=== PATIENT | female | born 1980 | race Hispanic/Latino ===

== ENCOUNTER 2018-07-29 12:02 | Emergency (ER) | payer BC ==
[~2018-07-29] VITALS: Ht 151.1 cm; Wt 82.6 kg
[2018-07-29] MEDS ORDERED: CEFTRIAXONE SOD 1 GM/NS 50 ML 50 ML IV STA (12:07)
[2018-07-29] MEDS ORDERED: MORPHINE SULFATE INJ 4 MG/ML INJ 1ML IV STA (12:07)
[2018-07-29] MEDS ORDERED: SODIUM CHLORIDE 0.9% 1000ML 1,000 ML IV STA (12:07)
[2018-07-29] MEDS ORDERED: ONDANSETRON HCL INJ 2MG/ML 2ML 2 MG/ML VIAL IV STA (12:07)
--- NOTE | 2018-07-29 13:34 | NUR ---
TO CT VIA WC WITH TECH
[2018-07-29 14:08] LABS: STREPTOCOCCUS GRP A ANTIGEN NEGATIVE (NEGATIVE)
[2018-07-29 14:12] LABS: CLARITY,URINE CLOUDY (CLEAR); COLOR,URINE YELLOW (YELLOW); LEUKOCYTE ESTERASE ,URINE TRACE (NEGATIVE); NITRITE,URINE NEGATIVE (NEGATIVE)
[2018-07-29 14:13] LABS: BILIRUBIN,URINE 1+ (NEGATIVE); KETONES,URINE NEGATIVE (NEGATIVE); PROTEIN,URINE DIPSTICK 2+ (NEGATIVE); URINE UROBILINOGEN 0.2 mg/dL (0.2 - 1)
[2018-07-29 14:14] LABS: PREGNANCY TEST, URINE NEGATIVE (NEGATIVE)
[2018-07-29 14:24] LABS: BACTERIA,URINE MODERATE /HPF; RBC,URINE >50 /HPF (0-5)
[2018-07-29 14:25] LABS: AMORPHOUS SEDIMENT,URINE MODERATE (FEW); EPITHELIAL CELLS,URINE MODERATE /LPF
[2018-07-29] MEDS ORDERED: KETOROLAC TROMETHAMINE 30 MG/ML VIAL IV ONE (14:30)
[2018-07-29 14:48] LABS: INFLUENZAE A&B ANTIGEN (RAPID) NEGATIVE (NEGATIVE)
--- NOTE | 2018-07-29 14:48 | Diagnostic Imaging Report ---
EXAMINATION: CT of the abdomen and pelvis without contrast. TECHNIQUE: Spiral CT images of the abdomen and pelvis were performed from the lung bases to the lesser trochanters. No intravenous contrast was given per renal stone protocol. Coronal and sagittal reformatted images were obtained. COMPARISON: None. CLINICAL HISTORY:Right lower quadrant pain radiating to right back side DISCUSSION: ABSENCE OF INTRAVENOUS CONTRAST DECREASES SENSITIVITY FOR DETECTION OF FOCAL LESIONS AND VASCULAR PATHOLOGY. ABDOMEN/PELVIS: LOWER THORAX: Unremarkable. HEPATOBILIARY: Diffuse hepatic steatosis. Mild hepatomegaly, measuring 16 cm in the right midclavicular line. Normal hepatic contour. 1.0 cm rounded structure in hepatic segment III (series 3, image 45), which is hyperdense relative to the rest of the hepatic parenchyma. No other focal hepatic lesions. No intra or extrahepatic biliary ductal dilation. GALLBLADDER: No radio-opaque stones or sludge. No wall thickening. SPLEEN: No splenomegaly. PANCREAS: No focal masses or ductal dilatation. ADRENALS: No adrenal nodules. KIDNEYS/URETERS: 2 adjacent radiopaque stones are noted in the proximal right ureter measuring 2 and 3 mm (series 3, image 88 and coronal image 55), which result in mild right hydronephrosis, proximal hydroureter and minimal periureteral stranding. Punctate nonobstructing calculus in the right inferior pole (series 3, image 84). No other renal or ureteral calculi. No left hydronephrosis or obstruction. No renal contour abnormalities. PELVIC ORGANS/BLADDER: Bladder is unremarkable. Uterus is unremarkable. No adnexal masses. PERITONEUM/RETROPERITONEUM: No free air or fluid. LYMPH NODES: No intra-abdominal,retroperitoneal, pelvic or inguinal lymphadenopathy. VESSELS: Unremarkable for noncontrast exam. GI TRACT: No bowel dilation or evidence of obstruction. No pericolonic inflammatory changes. Appendix identified and normal in caliber. BONES AND SOFT TISSUES: No aggressive lytic lesions. Small fat-containing right inguinal hernia. IMPRESSION: 1. 2 and 3 mm obstructing calculi in the proximal right ureter, which result in mild right hydronephrosis, proximal hydroureter and minimal periureteral stranding. 2. Punctate nonobstructing calculus in the right inferior pole. 3. Mild hepatomegaly with diffuse steatosis. A 1.0 cm rounded structure in hepatic segment III, which is hyperdense relative to the rest of the hepatic parenchyma likely represents a focus of fatty sparing. This may be further assessed with contrast-enhanced MRI of the abdomen with liver mass protocol. Signed by: Dr. Lev Otoole M.D. on 07/29/2018 2:45 PM
[2018-07-29 15:03] LABS: BASOPHILS # (AUTO) 0.1 (0.0-0.1); BASOPHILS % 0.7 % (0.0-1.0); EOSINOPHILS # (AUTO) 0.7 (0.0-0.4); EOSINOPHILS % 7.5 % (0.0-6.0); HEMATOCRIT 44.6 % (34.2-44.1); LYMPHOCYTES # (AUTO) 1.8 (1.0-3.2); LYMPHOCYTES % 19.5 % (18.0-39.1); MEAN CORPUSCULAR HEMOGLOBIN 29.1 pg (28-32); MEAN CORPUSCULAR HGB CONC 33.6 g/dL (31-35); MEAN CORPUSCULAR VOLUME 86.4 fL (81-99); MONOCYTES # (AUTO) 0.7 (0.2-0.8); MONOCYTES % 7.2 % (4.4-11.3); NEUTROPHILS # (AUTO) 6.1 (2.1-6.9); NEUTROPHILS % 64.9 % (38.7-80.0); PLATELET COUNT 228 x10e3/uL (140-360); RED BLOOD COUNT 5.16 x10e6/uL (3.6-5.1); RED CELL DISTRIBUTION WIDTH 12.9 % (11.7-14.4)
[2018-07-29 15:16] LABS: ALANINE AMINOTRANSFERASE 30 IU/L (0-55); ALBUMIN/GLOBULIN RATIO 1.1 (0.8-2.0); ALKALINE PHOSPHATASE 100 IU/L (40-150); ANION GAP 13.9 mmol/L (8-16); BLOOD UREA NITROGEN 10 mg/dL (7-26); BUN/CREATININE RATIO 13 (6-25); CARBON DIOXIDE 26 mmol/L (22-29); CHLORIDE 103 mmol/L (98-107); CREATININE, SERUM 0.78 mg/dL (0.57-1.11); EST GLOMERULAR FILTRATION RATE > 60 ML/MIN (60-); GLUCOSE 100 mg/dL (74-118); LIPASE 25 U/L (8-78); POTASSIUM 3.9 mmol/L (3.5-5.1); SODIUM 139 mmol/L (136-145)
[2018-07-29 15:45] VITALS: BP 116/90
== END 2018-07-29 15:55 | disposition home or self-care (01) ==
LOC: ER 12:02
DX: R10.9 Unspecified abdominal pain (principal); M54.5 Low back pain; R11.0 Nausea; N20.1 Calculus of ureter
CPT/HCPCS: 36415; 74176; 80053; 81001; 81025; 83518; 83690; 85025; 87070; 87086; 87400; 99284; J0696; J2405; J7030

== ENCOUNTER → 2021-10-17 | Outpatient (CLI) | payer BC | LOC: MAMMO 15:05 | PROVIDERS: ATTEND Obstetrics & Gynecology | DX: Z12.31 Encounter for screening mammogram for malignant neoplasm of breast (principal) | CPT/HCPCS: 77067 ==